=== PATIENT | male | born 1970 | race Caucasian/White ===

== ENCOUNTER 2021-03-11 15:07 | Emergency (ER) | payer SELFPAY ==
[2021-03-11] MEDS ORDERED: HEPARIN for IV BOLUS 10,000 UNIT/10 ML VIAL. ONE ×2 (15:08→15:39)
[2021-03-11] MEDS ORDERED: AMIODARONE 450 MG/9 ML VIAL IV ONE (15:08)
[2021-03-11] MEDS ORDERED: CALCIUM CHLORIDE 1,000 MG/10 ML DISP.SYRIN IV ONE ×3 (15:08→15:30)
[2021-03-11] MEDS ORDERED: MAGNESIUM SULFATE 2 GM/50 ML IV ONE (15:08)
[2021-03-11] MEDS ORDERED: MAGNESIUM SULFATE 1 GM/2 ML IV ONE (15:08)
[2021-03-11] MEDS ORDERED: MAGNESIUM SULFATE PREMIX 1 GM/100 ML BAG. IV ONE (15:30)
[2021-03-11] MEDS ORDERED: EPINEPHrine SYRINGE 1 MG/10 ML SYRINGE ONE ×2 (15:30)
[2021-03-11] MEDS ORDERED: DEXTROSE 50% 25 GM / 50ML DISP.SYRIN. IV ONE (15:30)
[2021-03-11] MEDS ORDERED: KETAMINE HCL 500 MG/10 ML VIAL. ONE (15:30)
[2021-03-11] MEDS ORDERED: AMIODARONE 150 MG/3 ML VIAL IVP ONE ×2 (15:30→15:33)
[2021-03-11] MEDS ORDERED: SODIUM BICARB ADULT 8.4% 50 MEQ/50 ML DISP.SYRIN. ONE (15:30)
[2021-03-11] MEDS ORDERED: IV NORMAL SALINE 50ML 50 ML ONE (15:32)
[2021-03-11] MEDS ORDERED: MAGNESIUM SULFATE 2GM 50 ML IV ONE (15:38)
[2021-03-11 15:46] LABS: BASO # 0.1 x10^3/uL (0.0-0.2); BASO % 1 % (0-3); EOS # 0.2 x10^3/uL (0.0-0.7); EOS % 1 % (0-3); HEMATOCRIT 46.5 % (39.0-53.0); HEMOGLOBIN 15.6 g/dL (13.0-17.5); LYMPH # 7.9 x10^3/uL (1.0-4.8); LYMPH % 46 % (24-48); MEAN CORPUSCULAR HEMOGLOBIN 35 pg (25-35); MEAN CORPUSCULAR HGB CONC 34 g/dL (31-37); MEAN CORPUSCULAR VOLUME 105 fL (79-100); MONO # 1.2 x10^3/uL (0.0-1.1); MONO % 7 % (0-9); NEUT # 7.7 x10^3uL (1.8-7.7); NEUT % 45 % (31-73); PLATELET COUNT 140 x10^3/uL (140-400); RED BLOOD COUNT 4.44 x10^6/uL (4.30-5.70); RED CELL DISTRIBUTION WIDTH 12.7 % (11.5-14.5)
[2021-03-11 15:58] LABS: ALBUMIN 3.6 g/dL (3.4-5.0); ALBUMIN/GLOBULIN RATIO 1.2 (1.0-1.7); CREATININE 1.7 mg/dL (0.7-1.3); GFR 43.2; TOTAL BILIRUBIN 0.6 mg/dL (0.2-1.0); TOTAL PROTEIN 6.6 g/dL (6.4-8.2)
[2021-03-11 16:05] LABS: CALCIUM 15.1 mg/dL (8.5-10.1); POTASSIUM 2.7 mmol/L (3.5-5.1)
--- NOTE | 2021-03-11 16:23 | PHYS DOC ---
Past History Past Medical History Unknown Past Surgical History Unknown Social History Unknown General Adult EDM: Chief Complaint: CPR/FULL ARREST HPI: HPI: 50 year old male who was building a deck 20 minutes prior to arrival started experiencing chest pain in the middle of his chest associated with shortness of breath and diaphoresis. Shortly after arrival in exam room the patient began to turn blue, went apneic, and went into an abnormal rhythm. No pulses were able to be felt and CPR was started. No further history was able to be obtained due to his clinical condition. Review of Systems: Review of Systems: No further ROS was able to be obtained secondary to patient's clinical condition Family History: Family History: Unknown Current Medications: Current Meds: Current Medications Medications (Trade) Dose Ordered Sig/Olegario Start Time Stop Time Status Last Admin Dose Admin Amiodarone HCl (Cordarone) 150 mg STK-MED ONCE 03/11/21 15:33 03/11/21 15:33 DC Heparin Sodium (Porcine) (Heparin Sodium) 10,000 unit STK-MED ONCE 03/11/21 15:39 03/11/21 15:39 DC Magnesium Sulfate 50 ml @ As Directed STK-MED ONCE 03/11/21 15:38 03/11/21 15:38 DC Sodium Chloride 50 ml @ As Directed STK-MED ONCE 03/11/21 15:32 03/11/21 15:33 DC Allergies: Allergies: Unknown Physical Exam: PE: General: Unresponsive; intermittently minimally responsive upon achieving ROSC Skin: Cool skin, dusky color change noted over the upper chest, neck and head Head: Normocephalic, atraumatic Neck: Supple, trachea midline ENT: Pupils 2 mm and reactive, blood intermittently coming from mouth Cardiovascular: Pulseless, no edema Respiratory: Equal breath sounds bilaterally Gastrointestinal: Nondistended, soft Musculoskeletal: No obvious deformity Neurological: GCS 3; intermittent improvement upon achieving ROSC Current Patient Data: Labs: Laboratory Tests Test 03/11/21 15:25 White Blood Count 17.0 x10^3/uL (4.0-11.0) H Red Blood Count 4.44 x10^6/uL (4.30-5.70) Hemoglobin 15.6 g/dL (13.0-17.5) Hematocrit 46.5 % (39.0-53.0) Mean Corpuscular Volume 105 fL (79-100) H Mean Corpuscular Hemoglobin 35 pg (25-35) Mean Corpuscular Hemoglobin Concent 34 g/dL (31-37) Red Cell Distribution Width 12.7 % (11.5-14.5) Platelet Count 140 x10^3/uL (140-400) Neutrophils (%) (Auto) 45 % (31-73) Lymphocytes (%) (Auto) 46 % (24-48) Monocytes (%) (Auto) 7 % (0-9) Eosinophils (%) (Auto) 1 % (0-3) Basophils (%) (Auto) 1 % (0-3) Neutrophils # (Auto) 7.7 x10^3uL (1.8-7.7) Lymphocytes # (Auto) 7.9 x10^3/uL (1.0-4.8) H Monocytes # (Auto) 1.2 x10^3/uL (0.0-1.1) H Eosinophils # (Auto) 0.2 x10^3/uL (0.0-0.7) Basophils # (Auto) 0.1 x10^3/uL (0.0-0.2) Segmented Neutrophils % 45 % (35-66) Lymphocytes % 40 % (24-48) Monocytes % 15 % (0-10) H Platelet Estimate Adequate (ADEQUATE) Sodium Level 146 mmol/L (136-145) H Potassium Level 2.7 mmol/L (3.5-5.1) *L Chloride Level 106 mmol/L (98-107) Carbon Dioxide Level 16 mmol/L (21-32) L Anion Gap 24 (6-14) H Blood Urea Nitrogen 11 mg/dL (8-26) Creatinine 1.7 mg/dL (0.7-1.3) H Estimated GFR (Cockcroft-Gault) 43.2 BUN/Creatinine Ratio 6 (6-20) Glucose Level 316 mg/dL (70-99) H Calcium Level 15.1 mg/dL (8.5-10.1) *H Total Bilirubin 0.6 mg/dL (0.2-1.0) Aspartate Amino Transferase (AST) 65 U/L (15-37) H Alanine Aminotransferase (ALT) 68 U/L (16-63) H Alkaline Phosphatase 72 U/L (46-116) Troponin I Quantitative 0.054 ng/mL (0-0.055) Total Protein 6.6 g/dL (6.4-8.2) Albumin 3.6 g/dL (3.4-5.0) Albumin/Globulin Ratio 1.2 (1.0-1.7) EKG: EKG: Large anterior STEMI appreciated on EKG that was obtained after period of prolonged rosc Heart Score: C/O Chest Pain: Yes HEART Score for Chest Pain: HEART Score for Chest Pain Response (Comments) Value History Highly Suspicious [address] Depression 2 Age >45 - < 65 1 Risk Factors >3 Risk Factors or Hx CAD 2 Troponin >3 x Normal Limit 2 Total 9 Course & Med Decision Making: Course & Med Decision Making Patient was seen immediately in the exam room, patient appeared very unwell, he had dusky color changes over his upper chest neck and head, appeared to have seizure-like activity, he was not breathing normally and appeared to be in severe distress. Upon checking a pulse, the patient did not have a femoral pulse or carotid pulse and CPR was expeditiously started. Pads were placed, patient was bagged. Right antecubital large-bore IV was placed by RN. I placed a left tibial IO. Initial rhythm shows torsades judit pointes appearing rhythm. Magnesium was immediately bolused, calcium was given. Epinephrine was given per ACLS protocol. Patient was defibrillated at 200 J after he appeared to go in a V. fib appearing rhythm with no pulse. Intermittently, the patient would voluntarily move his extremities and respond to painful stimuli and voices, but shortly afterwards he would then lose a pulse and code again, going back into ventricular fibrillation and torsades. More magnesium was infused along with ca lcium, bicarbonate, epinephrine. The patient then went into a sinus tachycardia, regained a pulse and she had a more prolonged period of ROSC. Patient continued to have an abnormal breathing pattern and was minimally responsive. Preparations were made for intubation due to his unstable airway. An EKG was expeditiously obtained which showed a large anterior STEMI. Dr. Albright from cardiology at [place] was contacted and agrees to take the patient to the [facility], EMS was immediately called and arrived expeditiously. Per cardiology recommendations patient was given amiodarone bolus and drip, heparin 4,000U. The patient was intubated with ketamine and rocuronium, a 7-0 tube was placed with good end- tidal CO2 change, good breath sounds bilaterally and appropriate SPO2 with good waveform and good end-tidal CO2 readings. Upon EMS, the patient then again lost pulses. CPR was then reinitiated, the patient was then aggressively given calcium, magnesium, bicarb and epinephrine per ACLS protocol, he was defibrillat ed several times for ventricular fibrillation. After approximately 40 minutes of CPR, Patient again began to become dusky in his upper trunk and head, blood was coming out of the ET tube, and patient had obvious rib fractures from prolonged CPR. I performed a bedside echocardiogram to assess the patient's heart, I did not appreciate any survivable cardiac motion and he was in essence in cardiac standstill. His IVC was plethoric likely due to cardiac standstill. His aorta was also view longitudinally but no obvious dissection flap was seen. After aggressive CPR and resuscitation, decision was made to terminate efforts due to medical futility as the patient was nonresponsive to all medications, defibrillation and interventions. Time of was called at 1556. Critical care time was 76 minutes which includes time at bedside leading CPR and resuscitation, spent in discussion of patient's care with specialists and/or family members, with interpretation of laboratory and/or radiological studies and is exclusive of procedures. Intubation Procedure Confirmed: patient, procedure, adjuncts and backup supplies in room. Performed by: Dmitry mckenzie DO. Informed consent: not signed due to emergency circumstance. Indication: [Difficult to bag, patient going in and out of cardiopulmonary resuscitation, airway protection]. Medications given: Ketamine, rocuronium Preparation: oxygenated with 100% oxygen prior to intubation with BVM/non- rebreather, NC in place during whole intubation procedure, positioning of patient, cardiac monitoring during procedure. Technique: [video laryngoscopy performed with S4 blade], rapid sequence used, 7.0 cuffed tube placed in trachea, secured at 23 cm at the teeth. Confirmation of position: with auscultation of bilateral breath sounds, with ETCO2 capnometry. Chest x-ray was unable to be obtained prior to patient coding again. Findings: cords visualized without difficulty, normal airway, Passed ET tube without difficulty, visualized ET tube going into cords. Departure Departure: Impression: Primary Impression: Cardiac arrest Additional Impression: STEMI (ST elevation myocardial infarction) Disposition: 20 (1556) Condition: Referrals: PCP,UNKNOWN (PCP) DMITRY SANCHEZ DO Mar 11, 2021 16:23
[2021-03-11 16:26] LABS: % LYMPHS 40 % (24-48); % MONOS 15 % (0-10); % SEGS 45 % (35-66)
[2021-03-11 16:31] LABS: PLT ESTIMATE ADEQUATE (ADEQUATE)
--- NOTE | 2021-03-11 17:41 | EKG ---
[address] [address] Test Date: 2021-03-11 Test Time: 15:17:10 Pat Name: CULLEN JOHNSTON Department: Room: Gender: M [employer]: LUIS : 1970 Requested By: MIRIAM SANCHEZ Order Number: [id number] Reading MD: Zachary Albright MD Measurements Intervals [place]inkle Rate: 112 P: 0 VT: 142 QRS: 44 QRSD: 160 T: 78 QT: 294 QTc: 403 Interpretive Statements BASELINE RESPIRATORY ARTIFACT PROBABLE ATRIAL FIBRILLATION CONSIDER REPEAT EKG Electronically Signed On 03-12-2021 17:33:29 CDT by Zachary Albright MD
== END 2021-03-11 18:30 ==
LOC: ER 15:07
DX: I46.9 Cardiac arrest, cause unspecified (principal); I21.3 ST elevation (STEMI) myocardial infarction of unspecified site
CPT/HCPCS: 31500; 36415; 80053; 82803; 84484; 85007; 85025; 92950; 93005; 99291; J0171; J0282; J1644; J3475